=== PATIENT | female | born 1960 | race Caucasian/White ===

== ENCOUNTER 2017-10-16 12:04 | Emergency (ER) | payer OTHER, MEDICAID ==
[~2017-10-16] VITALS: Ht 170.2 cm; Wt 113.4 kg
[~2017-10-16 12:04] MED LIST: COZAAR 50 MG TA50 M2 PO; FISH OIL 1,001000 M2 PO
[2017-10-16] MEDS ORDERED: VOLTAREN GEL 1100 G2 TOP (12:14)
[2017-10-16] MEDS ORDERED: AZITHROMYCIN 2250 MG PO (12:14)
[2017-10-16 12:50] LABS: ABSOLUTE EOSINOPHILS 0.2 thou/uL (0.0-0.7); ABSOLUTE LYMPHOCYTES 2.1 thou/uL (0.8-5.3); ABSOLUTE MONOCYTES 0.5 thou/uL (0.0-1.2); ABSOLUTE NEUTROPHILS 5.3 thou/uL (1.6-8.1); BASOPHILS 0.3 %; HEMOGLOBIN 13.8 gm/dL (12.0-15.0); LYMPHOCYTES 26.3 %; MCH 28.5 pg (26.0-34.0); MCHC 33.5 g/dL (28.0-37.0); MCV 84.9 fL (80.0-100.0); MONOCYTES 6.4 %; MPV 7.4 fl. (7.2-11.1); NUCLEATED RBCS 0 /100WBC; PLATELET COUNT* 260 thou/uL (150-400); RBC 4.83 mil/uL (4.20-5.00); RDW-CV 13.7 % (10.5-14.5); WBC 8.1 thou/uL (4.0-11.0)
[2017-10-16 12:55] LABS: ANION GAP 9 mmol/L (7-16); BUN 14 mg/dL (7-18); CALCIUM 8.8 mg/dL (8.5-10.1); CHLORIDE 104 mmol/L (98-107); CO2 29 mmol/L (21-32); CREATININE 0.9 mg/dL (0.6-1.3); GLUCOSE 102 mg/dL (70-99); POTASSIUM 3.7 mmol/L (3.5-5.1); SODIUM 142 mmol/L (136-145)
[2017-10-16 13:02] LABS: ALBUMIN 3.9 g/dL (3.4-5.0); ALKALINE PHOSPHATASE 100 U/L (46-116); SGOT 26 U/L (15-37); SGPT 39 U/L (30-65); TOTAL BILIRUBIN 0.2 mg/dL (<0.1-1.0); TOTAL PROTEIN 8.2 g/dL (6.4-8.2); TROPONIN-I LEVEL <0.06 ng/mL (<0.06)
[2017-10-16] MEDS ORDERED: PROAIR HFA8.5 GM PO ×2 (15:07→16:57)
--- NOTE | 2017-10-16 16:02 | EKG ---
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: [place] : 1960 Requested By: Rosangela Augustin Order Number: [id number] Reading MD: Vern Acosta Measurements Intervals [place] Rate: 103 P: 45 VA: 161 QRS: -2 QRSD: 135 T: 12 QT: 361 QTc: 473 Interpretive Statements Sinus tachycardia Premature ventricular contraction Possible left atrial enlargement Right bundle branch block Compared to ECG 12/19/2016 10:01:32 Ventricular premature complex(es) now present Electronically Signed On 10-16-2017 16:01:54 RECLAIMER by Vern Acosta [email or web address] <ELECTRONICALLY SIGNED> By: Vern Acosta MD, [facility] 10/16/17 1601 D: [id number] Vern Acosta MD, FACC /EPI
[2017-10-16] MEDS ORDERED: MEDROLDOSEPACK PO (16:57)
[2017-10-16 17:11] VITALS: BP 145/67
== END 2017-10-16 17:12 | disposition home or self-care (01) ==
LOC: M.ERS 12:04
PROVIDERS: Personal Emergency Response Attendant
DX: J06.9 Acute upper respiratory infection, unspecified (principal); I10 Essential (primary) hypertension; Z88.2 Allergy status to sulfonamides

== ENCOUNTER → 2018-10-23 | Outpatient (CLI) | payer OTHER, MEDICAID ==
[~2018-10-23] MED LIST changes: +AZITHROMYCIN 2250 MG PO; +MEDROLDOSEPACK PO; +PROAIR HFA8.5 GM PO; +VOLTAREN GEL 1100 G2 TOP
--- NOTE | 2018-11-02 19:14 | SLEEP ---
[address] [address] SLEEP STUDY REPORT Name: VIELKA COE Room: [facility]#: [id number] Admission: 10/23/18 Attend Phys: Eran Hutton DO Discharge: Date of : 60 Report #: [id number] THIS REPORT FOR: //name// CC: Eran Hutton DO This study has been reviewed in its entirety by a board certified sleep specialist DATE OF SERVICE: 10/24/2018 ATTENDING PHYSICIAN: Dr. Eran Hutton. The patient is a 57-year-old who weighs 250 pounds with a BMI of 39.2. The patient has moderate subjective hypersomnia with an [place] score of 13. The patient underwent a home sleep study performed by [facility]. Total recording time was 415 minutes. During the night study, the patient had 2 central apneas, no mixed apneas and 13 obstructive apneas. The patient had 84 hypopneas. The patient's apnea-hypopnea index was 15 per hour. Supine index was 11.3 per hour. The patient's AHI in left lateral position was 40.5 per hour. Nocturnal oximetry study revealed an average oxygen saturation of 92% with the lowest of 76%. 53 minutes were spent at an oxygen saturation of less than 90% and another 6 minutes with saturation of less than 85%. Mean heart rate was 64 beats per minute with a maximum 118 beats per minute. IMPRESSION: 1. Mild sleep apnea-hypopnea syndrome at an apnea-hypopnea index of 15 per hour. 2. Moderate nocturnal hypoxia secondary to obstructive sleep apnea. RECOMMENDATIONS: 1. The patient is clinically symptomatic with an [place] score of 13 and also has moderate nocturnal hypoxia. I would recommend treating the patient's mild sleep apnea with either oral appliance or a trial of CPAP titration. 2. Once the patient is treated, then follow up in 4-6 weeks to assess compliance and to document clinical improvement. 3. Weight loss is strongly advised in addition to treatment of sleep apnea with the above recommendations. 4. 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 [address] SLEEP STUDY REPORT Name: COEVIELKA Room: [facility]#: [id number] Admission: 10/23/18 Attend Phys: Eran Hutton DO Discharge: Date of : 60 Report #: [id number] 5. Cautioned regarding driving until the patient's hypersomnia has resolved with the above recommendations. <ELECTRONICALLY SIGNED> By: Francisco Zapien MD 11/02/18 1914 1513 1523Anehal Zapien MD /nt
== END ==
LOC: M.SLEEPLAB 09:55
DX: G47.33 Obstructive sleep apnea (adult) (pediatric) (principal); R09.02 Hypoxemia; R06.83 Snoring; R40.0 Somnolence

== ENCOUNTER → 2018-11-24 | Outpatient (CLI) | payer OTHER, MEDICAID ==
--- NOTE | 2018-11-25 21:51 | SLEEP ---
[address] [address] SLEEP STUDY REPORT Name: VIELKA COE Room: [facility]#: [id number] Admission: 11/24/18 Attend Phys: Eran Hutton DO Discharge: Date of : 60 Report #: [id number] THIS REPORT FOR: //name// CC: Eran Hutton DO This study has been reviewed in its entirety by a board certified sleep specialist DATE OF SERVICE: 11/24/2018 INDICATIONS: The patient is 58 years old who weighs 250 pounds with a BMI of 39.2. The patient had a sleep study previously and the results were not available at the time of dictation. She was referred back for CPAP titration study. INTERPRETATION: During the night study, the patient spent 470 minutes in bed and slept for 225 minutes with a sleep efficiency of 55%, which is low. Sleep latency was prolonged at 67 minutes with a REM latency of 273 minutes. Overall, sleep architecture showed normal stage 1 and stage 2 sleep, increased N3 sleep and reduced REM sleep. EKG monitoring revealed an average heart rate of 57 beats per minute. No sustained arrhythmias observed. PLMS were seen at an index of 16 per hour and 5 per hour caused EEG arousals. The patient was started on CPAP at a pressure of 5 cm water and titrated up to 7 cm water. At the final pressure, the patient slept for 50 minutes. The patient had supine sleep, but no REM sleep. The patient's AHI was reduced to 0 per hour and oxygen saturation remained above 92%. IMPRESSION: 1. Sleep apnea diagnosed previously. 2. Mild periodic limb movements during sleep. RECOMMENDATIONS: 1. CPAP at 7 cm water completely eliminated the patient's sleep apnea and should be used on a nightly basis. 2. Follow up in 4-6 weeks to assess compliance with CPAP and to document clinical improvement. 3. Weight loss is strongly advised. 4. 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 5. Cautioned regarding driving until symptoms of sleep apnea resolve [place] the [place] [address] SLEEP STUDY REPORT Name: VIELKA COE Room: [facility]#: [id number] Admission: 11/24/18 Attend Phys: Eran Hutton DO Discharge: Date of : 60 Report #: [id number] 6. PLMS does not need to be treated unless the patient has symptoms of restless legs during the day. <ELECTRONICALLY SIGNED> By: Francisco Zapien MD 11/25/18 2151 1525 1743Anehal Zapien MD /nt
== END ==
LOC: M.SLEEPLAB 20:57
DX: G47.33 Obstructive sleep apnea (adult) (pediatric) (principal); G47.61 Periodic limb movement disorder

== ENCOUNTER → 2019-01-18 | Outpatient (CLI) | payer OTHER, MEDICAID | LOC: M.RAD 09:40 | DX: M17.12 Unilateral primary osteoarthritis, left knee (principal); G89.29 Other chronic pain ==